=== PATIENT | female | born 1965 | race Caucasian/White ===

== ENCOUNTER 2017-07-17 21:14 | Emergency (ER) | payer OTHER ==
[~2017-07-17] VITALS: Ht 165.1 cm; Wt 107.9 kg
[~2017-07-17 21:14] MED LIST: ERYT.5%O OU; SYNT112T PO
[2017-07-17 21:25] VITALS: BP 155/74; PULSE 61; RESP 16; TEMP 97.7; O2SAT 98
[2017-07-17] MEDS ORDERED: LEVO125T4 PO (21:41)
[2017-07-17] MEDS ORDERED: METF500T PO (21:41)
[2017-07-17] MEDS ORDERED: LISI40TA PO (21:42)
[2017-07-17] MEDS ORDERED: LOVA20TA PO (21:42)
[2017-07-17] MEDS ORDERED: SERT-132 PO (21:42)
[2017-07-17] MEDS ORDERED: KETOROLAC TROMETHAMINE 30 MG/ML (IVP) VIAL IV PUSH ONE (21:45)
[2017-07-17] MEDS ORDERED: SODIUM CHLORIDE 0.9% FLUSH 10 ML FLUSH IVF PRN (21:45)
--- NOTE | 2017-07-17 22:12 | RADRPT ---
EXAM DATE/TIME: 07/17/2017 21:44 [place] COMPARISON: No previous studies available for comparison. INDICATIONS : Chest and abdominal pain. MEDICAL HISTORY : Diabetes mellitus type II. Hypertension SURGICAL HISTORY : None. ENCOUNTER: Initial ACUITY: 1 day PAIN SCORE: 4/10 LOCATION: Bilateral lower chest FINDINGS: A single view of the chest demonstrates the lungs to be symmetrically aerated without evidence of mas s, infiltrate or effusion. Minimal linear scarring left lung base. The cardiomediastinal contours are unremarkable. Osseous structures are intact. CONCLUSION: Minimal linear scarring left lung base. No active disease. Ceasar Hale MD on July 17, 2017 at 22:09 Board Certified Radiologist. This report was verified electronically.
[2017-07-17 22:20] LABS: AUTOMATED NEUTROPHIL # 2.8 TH/MM3 (1.8-7.7); BASOPHIL % 0.8 % (0.0-2.0); EOSINOPHIL # 0.1 TH/MM3 (0-0.4); HEMATOCRIT 34.2 % (35.0-46.0); HEMOGLOBIN 11.6 GM/DL (11.6-15.3); LYMPH % 39.9 % (9.0-44.0); LYMPHOCYTE # 2.1 TH/MM3 (1.0-4.8); MEAN CELL VOLUME 84.4 FL (80.0-100.0); MEAN CORPUSCULAR HEMOGLOBIN 28.7 PG (27.0-34.0); MEAN PLATELET VOLUME 7.3 FL (7.0-11.0); MONO % 6.9 % (0.0-8.0); MONOCYTE # 0.4 TH/MM3 (0-0.9); NEUT % 51.4 % (16.0-70.0); PLATELET COUNT 237 TH/MM3 (150-450); RED BLOOD COUNT 4.05 MIL/MM3 (4.00-5.30); RED CELL DISTRIBUTION WIDTH 12.4 % (11.6-17.2); WHITE BLOOD COUNT 5.4 TH/MM3 (4.0-11.0)
--- NOTE | 2017-07-17 22:25 | PD ---
HPI Chief Complaint: Abdominal Pain Time Seen by Provider: 21:32 Travel History International Travel<30 days: No Contact w/Intl Traveler<30days: No Traveled to known affect area: No History of Present Illness HPI Patient is a 52-year-old female with history of hypertension and hyperlipidemia who presents to emergency room with complaints of pain under her left breast. Patient reports that she began to have left-pain under her breast which began this afternoon. Patient reports the pain is sharp and stabbing in nature. Patient reports that nothing makes pain better, palpation of the area makes the pain worse. Patient reports no shortness of breath or diaphoresis with symptoms. Denies any trauma to the chest wall. Denies any cough or congestion , denies any recent illnesses. Reports no nausea or vomiting, denies any constipation or diarrhea. Patient reports that she has a normal appetite, reports that she is not sure why she is having this pain under her left breast. Patient denies any history of PE or DVT. Patient denies any recent travels or trips. PFSH Past Medical History Depression: Yes High Cholesterol: Yes Diabetes: Yes Patient Takes Glucophage: Yes (07/16/17 1800) Diminished Hearing: No Hypertension: Yes Thyroid Disease: Yes (HYPOTHYROID) Tetanus Vaccination: > 5 Years Influenza Vaccination: No ?: Not Tubal Ligation: Yes Past Surgical History Cholecystectomy: Yes Social History Alcohol Use: No Tobacco Use: No Substance Use: No Allergies-Medications (Allergen,Severity, Reaction): Coded Allergies: No Known Allergies (Verified Adverse Reaction, Unknown, 07/17/17) Reported Meds & Prescriptions Reported Meds & Active Scripts Active Reported Lovastatin 20 Mg Tab 20 Mg PO DAILY Lisinopril 40 Mg Tab 40 Mg PO DAILY Sertraline (Sertraline HCl) 50 Mg Tab 50 Mg PO DAILY Levothyroxine (Levothyroxine Sodium) 125 Mcg Tab 125 Mcg PO DAILY Metformin (Metformin HCl) 500 Mg Tab 500 Mg PO DAILY With a meal Review of Systems General / Constitutional: No: Fever, Chills Eyes: No: Visual changes HENT: No: Headaches Cardiovascular: No: Chest Pain or Discomfort Respiratory: No: Shortness of Breath Gastrointestinal: No: Nausea, Vomiting, Abdominal Pain Genitourinary: No: Dysuria Musculoskeletal: No: Pain Skin: No Rash Neurologic: No: Weakness Psychiatric: No: Depression Endocrine: No: Polydipsia Hematologic/Lymphatic: No: Easy Bruising Physical Exam Narrative GENERAL: No acute distress SKIN: Focused skin assessment warm/dry. HEAD: Atraumatic. Normocephalic. EYES: Pupils equal and round. No scleral icterus. No injection or drainage. ENT: No nasal bleeding or discharge. Mucous membranes pink and moist. NECK: Trachea midline. No JVD. CARDIOVASCULAR: Regular rate and rhythm. No murmur appreciated. Patient with reproducible pain under left breast RESPIRATORY: No accessory muscle use. Clear to auscultation. Breath sounds equal bilaterally. GASTROINTESTINAL: Abdomen soft, non-tender, nondistended. Hepatic and splenic margins not palpable. MUSCULOSKELETAL: No obvious deformities. No clubbing. No cyanosis. No edema. NEUROLOGICAL: Awake and alert. No obvious cranial nerve deficits. Motor grossly within normal limits. Normal speech. PSYCHIATRIC: Appropriate mood and affect; insight and judgment normal. Data Data Last Documented VS Vital Signs Date Time Temp Pulse Resp B/P (MAP) Pulse Ox O2 Delivery O2 Flow Rate FiO2 07/17/17 22:28 53 16 126/72 (90) 98 Room Air 07/17/17 21:25 97.7 Orders Orders Electrocardiogram (07/17/17 21:43) Ckmb (Isoenzyme) Profile (07/17/17 21:43) Complete Blood Count With Diff (07/17/17 21:43) Comprehensive Metabolic Panel (07/17/17 21:43) Magnesium (Mg) (07/17/17 21:43) Prothrombin Time / Inr (Pt) (07/17/17 21:43) Act Partial Throm Time (Ptt) (07/17/17 21:43) Troponin I (07/17/17 21:43) Lipase (07/17/17 21:43) Chest, Single Ap (07/17/17 21:43) Ecg Monitoring (07/17/17 21:43) Iv Access Insert/Monitor (07/17/17 21:43) Oximetry (07/17/17 21:43) Sodium Chloride 0.9% Flush (Ns Flush) (07/17/17 21:45) Ketorolac Inj (Toradol Inj) (07/17/17 21:45) D-Dimer (07/17/17 21:43) Labs Laboratory Tests Test 07/17/17 22:08 White Blood Count 5.4 TH/MM3 Red Blood Count 4.05 MIL/MM3 Hemoglobin 11.6 GM/DL Hematocrit 34.2 % Mean Corpuscular Volume 84.4 FL Mean Corpuscular Hemoglobin 28.7 PG Mean Corpuscular Hemoglobin Concent 34.0 % Red Cell Distribution Width 12.4 % Platelet Count 237 TH/MM3 Mean Platelet Volume 7.3 FL Neutrophils (%) (Auto) 51.4 % Lymphocytes (%) (Auto) 39.9 % Monocytes (%) (Auto) 6.9 % Eosinophils (%) (Auto) 1.0 % Basophils (%) (Auto) 0.8 % Neutrophils # (Auto) 2.8 TH/MM3 Lymphocytes # (Auto) 2.1 TH/MM3 Monocytes # (Auto) 0.4 TH/MM3 Eosinophils # (Auto) 0.1 TH/MM3 Basophils # (Auto) 0.0 TH/MM3 CBC Comment DIFF FINAL Differential Comment Prothrombin Time 10.7 SEC Prothromb Time International Ratio 1.1 RATIO Activated Partial Thromboplast Time 26.9 SEC D-Dimer Quantitative (PE/DVT) 0.25 MG/L FEU Blood Urea Nitrogen 23 MG/DL Creatinine 0.97 MG/DL Random Glucose 92 MG/DL Total Protein 8.0 GM/DL Albumin 3.4 GM/DL Calcium Level 9.0 MG/DL Magnesium Level 2.1 MG/DL Alkaline Phosphatase 95 U/L Aspartate Amino Transf (AST/SGOT) 16 U/L Alanine Aminotransferase (ALT/SGPT) 21 U/L Total Bilirubin 0.4 MG/DL Sodium Level 134 MEQ/L Potassium Level 4.3 MEQ/L Chloride Level 103 MEQ/L Carbon Dioxide Level 25.1 MEQ/L Anion Gap 6 MEQ/L Estimat Glomerular Filtration Rate 60 ML/MIN Total Creatine Kinase 70 U/L Troponin I LESS THAN 0.02 NG/ML Lipase 286 U/L [facility] Medical Decision Making Medical Screen Exam Complete: Yes Emergency Medical Condition: Yes Medical Record Reviewed: Yes Interpretation(s) EKG at 2155: Sinus bradycardia at 57 beats minute, QT/QTc: 405/29, no acute ST- T wave changes Vital Signs Date Time Temp Pulse Resp B/P (MAP) Pulse Ox O2 Delivery O2 Flow Rate FiO2 07/17/17 21:25 97.7 61 16 155/74 (101) 98 Differential Diagnosis Costochondritis, PE, pneumothorax, gastric ulcer, gastritis, electrolyte abnormality Narrative Course 52-year-old female who presents the emergency room with complaints of sharp stabbing pain in her left breast which began this afternoon while at rest. Patient reports her pain has been persistent throughout the day, nothing has been making the pain better or worse. Patient reports that she is able to reproduce the pain by palpation under her left breast, patient unsure why she is having this pain as she denies any trauma. Patient with no fever chills, no shortness of breath, no recent travels or trips, no history of PE or DVT, she is a non-smoker, reports no other symptoms or complaints at this time. During the course of the patients emergency department visit, the patients history, examination, and differential diagnosis were reviewed with the patient. The patient was placed on a monitoring manager with oximetry and frequent blood pressure monitoring. The patient had an IV access obtained and blood work sent for analysis. The patient was initially provided IV Toradol as patient reports pain in her left breast which is sharp and stabbing nature. Her pain is reproducible with palpation of her chest wall, I do believe that her chest pain is muscle skeletal in nature. The patients laboratory studies were reviewed and remarkable for: Laboratory Tests Test 07/17/17 22:08 White Blood Count 5.4 TH/MM3 (4.0-11.0) Red Blood Count 4.05 MIL/MM3 (4.00-5.30) Hemoglobin 11.6 GM/DL (11.6-15.3) Hematocrit 34.2 % (35.0-46.0) Mean Corpuscular Volume 84.4 FL (80.0-100.0) Mean Corpuscular Hemoglobin 28.7 PG (27.0-34.0) Mean Corpuscular Hemoglobin Concent 34.0 % (32.0-36.0) Red Cell Distribution Width 12.4 % (11.6-17.2) Platelet Count 237 TH/MM3 (150-450) Mean Platelet Volume 7.3 FL (7.0-11.0) Neutrophils (%) (Auto) 51.4 % (16.0-70.0) Lymphocytes (%) (Auto) 39.9 % (9.0-44.0) Monocytes (%) (Auto) 6.9 % (0.0-8.0) Eosinophils (%) (Auto) 1.0 % (0.0-4.0) Basophils (%) (Auto) 0.8 % (0.0-2.0) Neutrophils # (Auto) 2.8 TH/MM3 (1.8-7.7) Lymphocytes # (Auto) 2.1 TH/MM3 (1.0-4.8) Monocytes # (Auto) 0.4 TH/MM3 (0-0.9) Eosinophils # (Auto) 0.1 TH/MM3 (0-0.4) Basophils # (Auto) 0.0 TH/MM3 (0-0.2) CBC Comment DIFF FINAL Differential Comment Prothrombin Time 10.7 SEC (9.8-11.6) Prothromb Time International Ratio 1.1 RATIO Activated Partial Thromboplast Time 26.9 SEC (24.3-30.1) D-Dimer Quantitative (PE/DVT) 0.25 MG/L FEU (0.00-0.50) Blood Urea Nitrogen 23 MG/DL (7-18) Creatinine 0.97 MG/DL (0.50-1.00) Random Glucose 92 MG/DL (74-106) Total Protein 8.0 GM/DL (6.4-8.2) Albumin 3.4 GM/DL (3.4-5.0) Calcium Level 9.0 MG/DL (8.5-10.1) Magnesium Level 2.1 MG/DL (1.5-2.5) Alkaline Phosphatase 95 U/L (45-117) Aspartate Amino Transf (AST/SGOT) 16 U/L (15-37) Alanine Aminotransferase (ALT/SGPT) 21 U/L (10-53) Total Bilirubin 0.4 MG/DL (0.2-1.0) Sodium Level 134 MEQ/L (136-145) Potassium Level 4.3 MEQ/L (3.5-5.1) Chloride Level 103 MEQ/L (98-107) Carbon Dioxide Level 25.1 MEQ/L (21.0-32.0) Anion Gap 6 MEQ/L (5-15) Estimat Glomerular Filtration Rate 60 ML/MIN (>89) Total Creatine Kinase 70 U/L (26-192) Troponin I LESS THAN 0.02 NG/ML Lipase 286 U/L (73-393) Radiology studies were reviewed and remarkable for Last Impressions Chest X-Ray 07/17/17 2693 Signed Impressions: Service Date/Time: Monday, July 17, 2017 21:44 - CONCLUSION: Minimal linear scarring left lung base. No active disease. Ceasar Hale MD Patient reevaluated, patient reports that she is feeling much better. Patient has resolution of chest wall pain after IV Toradol was given. Patient with reproducible left-sided chest wall tenderness, patient with most likely costochondritis. Signs and symptoms of when to return to the emergency room was reviewed with patient in detail. Patient happy with plan of care. She understands that she should follow-up with her primary care doctor in 2-3 days. Diagnosis Primary Impression: Costochondritis Patient Instructions: General Instructions Additional Instructions: Please provide patient with a copy of their lab work and studies at discharge* * Please follow up with your primary care doctor in 2-3 days Return to the ER if symptoms worsen or progress Return to the ER as needed Disposition: 01 DISCHARGE HOME Condition: Stable Melanie Bermudez DO Jul 17, 2017 22:25
[2017-07-17 22:27] LABS: CHLORIDE 103 MEQ/L (98-107); SODIUM (NA) 134 MEQ/L (136-145)
[2017-07-17 22:28] VITALS: BP 126/72; PULSE 53; RESP 16; O2SAT 98
[2017-07-17 22:31] LABS: ALBUMIN 3.4 GM/DL (3.4-5.0); BICARBONATE 25.1 MEQ/L (21.0-32.0); BLOOD UREA NITROGEN 23 MG/DL (7-18); GLUCOSE,RANDOM 92 MG/DL (74-106); MAGNESIUM 2.1 MG/DL (1.5-2.5)
[2017-07-17 22:34] LABS: ALT (GPT) 21 U/L (10-53); AST (GOT) 16 U/L (15-37); CREATININE 0.97 MG/DL (0.50-1.00); GLOMERULAR FILTRATION RATE 60 ML/MIN (>89)
[2017-07-17 22:35] LABS: TOTAL BILIRUBIN ADULT 0.4 MG/DL (0.2-1.0)
[2017-07-17 22:37] LABS: ALKALINE PHOSPHATASE 95 U/L (45-117)
[2017-07-17 22:39] LABS: TROPONIN I LESS THAN 0.02 NG/ML (0.02-0.05)
[2017-07-17 22:42] LABS: INTERNATIONAL NORMALIZED RATIO 1.1 RATIO; PROTHROMBIN TIME - PATIENT 10.7 SEC (9.8-11.6)
[2017-07-17 22:44] LABS: D-DIMER 0.25 MG/L FEU (0.00-0.50)
[2017-07-17 23:26] VITALS: BP 111/60
--- NOTE | 2017-07-18 20:38 | EKG ---
Date Performed: 07/17/2017 Time Performed: 21:55:04 PTAGE: 52 years EKG: SINUS BRADYCARDIA LOW QRS VOLTAGE IN PRECORDIAL LEADS Compared to previous tracing, sinus r ate is slower BORDERLINE ECG PREVIOUS TRACING : 04/01/2000 22.02 DOCTOR: Fidel Rossi Interpretating Date/Time 07/18/2017 20:36:25
== END 2017-07-17 23:35 | disposition home or self-care (01) ==
LOC: PHED 21:14
DX: M94.0 Chondrocostal junction syndrome [Tietze] (principal); R00.1 Bradycardia, unspecified; I10 Essential (primary) hypertension; E78.5 Hyperlipidemia, unspecified; F32.9 Major depressive disorder, single episode, unspecified; E78.00 Pure hypercholesterolemia, unspecified; E11.9 Type 2 diabetes mellitus without complications; E03.9 Hypothyroidism, unspecified; Z79.899 Other long term (current) drug therapy
CPT/HCPCS: 71045; 80053; 82550; 83690; 83735; 84484; 85025; 85379; 85610; 85730; 93005; 96374; 99285; J1885